=== PATIENT | male | born 1955 | race Caucasian/White ===

== ENCOUNTER 2018-11-05 20:20 | Emergency (ER) | payer OTHER ==
[~2018-11-05 20:20] MED LIST: ALPRAZolam 0.25 MG Tab ONE
[2018-11-05] MEDS ORDERED: ALPRAZolam 0.25 MG Tab ONE ×3 (21:00→22:11)
[2018-11-05] MEDS ORDERED: GI Cocktail Oral Solution 30 ML PO ONE (22:00)
[2018-11-05] MEDS ORDERED: ALPRAZolam 0.25 MG Tab PO ONE (22:00)
[2018-11-05] MEDS ORDERED: Aluminum Hydroxide/Magnesium Hydroxide/Simethicone Susp 30 ML Cup ONE (22:10)
--- NOTE | 2018-11-07 10:06 | EDM.PDOC ---
ED HPI GENERAL MEDICAL PROBLEM - General Chief Complaint: General Stated Complaint: CHEST PAIN Time Seen by Provider: 11/05/18 20:50 Source of Information: Reports: Patient History Limitations: Reports: No Limitations - History of Present Illness INITIAL COMMENTS - FREE TEXT/NARRATIVE: This is a 63yo M here via private vehicle driven by son for chest pain daily on and off for the past 3 months. Patient complains of GI upset/heartburn pain with radiation into chest-midsternal. Patient states he was seen by PCP and started on Prilosec approximately 2 weeks ago, but has had no relief of symptoms. Patient denies any SOB, dyspnea, chest pain present. Pt does appear very anxious, but otherwise remains stable with no change in condition since arrival to facility. Patient reports he was on Setraline for "quite a few years " then stopped it abruptly "late fall" and with increase in anxiety and other he has been experiencing, restarted Setraline last Sunday. Pt is not from [facility] , but here on fishing trip with son. Duration: Chronic, Constant, Waxing/Waning Location: Reports: Chest Worsens with: Reports: Movement Associated Symptoms: Reports: Chest Pain Mid-Sternal Chest Pain Score (Numeric/FACES): 3 Past Medical History Cardiovascular History: Reports: High Cholesterol, Hypertension Gastrointestinal History: Reports: GERD Musculoskeletal History: Reports: Osteoarthritis Psychiatric History: Reports: Anxiety - Past Surgical History Musculoskeletal Surgical History: Reports: Shoulder Surgery Social & Family History - Family History Family Medical History: Noncontributory - Tobacco Use Smoking Status *Q: Never Smoker Second Hand Smoke Exposure: No - Caffeine Use Caffeine Use: Reports: Coffee, Soda - Recreational Drug Use Recreational Drug Use: No ED ROS GENERAL - Review of Systems Review Of Systems: ROS reveals no pertinent complaints other than HPI. ED EXAM, GENERAL - Physical Exam Exam: See Below Exam Limited By: No Limitations General Appearance: Alert, WD/WN, No Apparent Distress, Anxious Eye Exam: Bilateral Eye: EOMI, PERRL Ears: Normal External Exam Nose: Normal Inspection Throat/Mouth: Normal Inspection Head: Atraumatic, Normocephalic Neck: Normal Inspection, Supple, Non-Tender, Full Range of Motion Respiratory/Chest: No Respiratory Distress, Lungs Clear, Normal Breath Sounds Cardiovascular: Normal Peripheral Pulses, Regular Rate, Rhythm, No Edema, Other (chest wall pain between the sternum and right ribs) Peripheral Pulses: 2+: Dorsalis Pedis (L), Dorsalis Pedis (R) GI/Abdominal: Normal Bowel Sounds, Soft, Non-Tender, No Distention, No Abnormal Bruit, No Mass Back Exam: Normal Inspection Extremities: Normal Inspection Psychiatric: Anxious Skin Exam: Warm, Dry, Intact Course - Vital Signs Last Recorded V/S: Last Vital Signs Temp 37.0 C 11/05/18 20:25 Pulse 77 11/05/18 21:30 Resp 20 11/05/18 21:30 BP 164/108 H 11/05/18 21:30 Pulse Ox 97 11/05/18 21:30 - Orders/Labs/Meds Labs: Laboratory Tests 11/05/18 11/05/18 11/05/18 Range/Units 21:00 21:00 21:00 WBC 9.5 (4.0-11.0) K/uL RBC 4.55 (4.50-6.50) M/uL Hgb 14.1 (13.0-18.0) g/dL Hct 40.1 (40.0-54.0) % MCV 88 (76-96) fL MCH 31.0 (27.0-32.0) pg MCHC 35.2 H (31.0-35.0) g/dL RDW 12.8 (11.0-16.0) % Plt Count 161 (150-400) K/uL MPV 10.5 H (6.0-10.0) fL Neut % (Auto) 77.7 H (45.0-70.0) % Lymph % (Auto) 14.7 L (20.0-40.0) % [place] % (Auto) 6.8 (3.0-10.0) % Eos % (Auto) 0.5 L (1.0-5.0) % Baso % (Auto) 0.3 (0.0-0.5) % Neut # (Auto) 7.35 (2.00-7.50) K/uL Lymph # (Auto) 1.39 L (1.50-4.00) K/uL [place] # (Auto) 0.64 (0.20-0.80) K/uL Eos # (Auto) 0.05 (0.04-0.40) K/uL Baso # (Auto) 0.03 (0.02-0.10) K/uL Sodium 144 (136-145) mmol/L Potassium 3.4 L (3.5-5.1) mmol/L Chloride 107 (98-107) mmol/L Carbon Dioxide 25.0 (21.0-32.0) mmol/L Anion Gap 15.4 H (5.0-15.0) mmol/L BUN 10 (8-26) mg/dL Creatinine 0.90 (0.70-1.30) mg/dL Est Cr Clr Drug Dosing 71.26 mL/min Estimated GFR (MDRD) > 60 (>60) MLS/MIN BUN/Creatinine Ratio 11.1 (6-25) Glucose 109 H (74-100) mg/dL Calcium Not Reportable POC WB Ioniz Calcium 4.8 (4.5-5.3) mg/dL Troponin I 0.010 (0.000-0.060) ng/mL Meds: Medications Discontinued Medications Generic Name Dose Route Start Last Admin Trade Name Jaime PRN Reason Stop Dose Admin Al Hydroxide/Mg Hydroxide Confirm 11/05/18 22:10 11/05/18 23:43 Mag-Al Plus Administered 11/05/18 22:11 Not Given Dose 30 ml .ROUTE .STK-MED ONE Al Hydroxide/Mg Hydroxide 30 ml 11/05/18 22:00 11/05/18 22:10 Gi Cocktail PO 11/05/18 22:01 30 ml ONETIME ONE Administration Alprazolam Confirm 11/05/18 22:07 11/05/18 22:06 Xanax Administered 11/05/18 22:08 Not Given Dose 1 mg .ROUTE .STK-MED ONE Alprazolam Confirm 11/05/18 22:11 11/05/18 22:06 Xanax Administered 11/05/18 22:12 Not Given Dose 0.5 mg .ROUTE .STK-MED ONE Alprazolam 0.5 mg 11/05/18 22:00 11/05/18 22:06 Xanax PO 11/05/18 22:01 0.5 mg NOW ONE Administration Alprazolam 1 mg 11/05/18 17:00 Xanax .ROUTE 11/05/18 17:01 .STK-MED ONE Departure - Departure Time of Disposition: 22:30 Disposition: Home, Self-Care 01 Condition: Good Clinical Impression: Costochondral chest pain, Chronic GERD, Anxiety about health - Discharge Information Instructions: Alprazolam tablets, Nonspecific Chest Pain, [id number] Referrals: PCP,None [Primary Care Provider] - Forms: ED Department Discharge Additional Instructions: May take provided Xanax as directed: 2 tablets by mouth at bedtime as needed for anxiety. May take 1,000mg Tylenol every 6-8 hours as needed for pain. Activity and diet as tolerated. May also begin taking Miralax daily to help with bowel regime. Follow up with primary provider when you return home for further treatment and evaluation. Call with any questions. - Problem List & Annotations (1) Abnormal blood pressure SNOMED Code(s): 57833195 Code(s): BUC7774 - Status: Suspected Priority: Low (2) Anxiety about health SNOMED Code(s): 488641607 Code(s): F41.8 - OTHER SPECIFIED ANXIETY DISORDERS Status: Acute Priority : High (3) Chronic GERD SNOMED Code(s): 400907949, 450938188 Code(s): K21.9 - GASTRO-ESOPHAGEAL REFLUX DISEASE WITHOUT ESOPHAGITIS Status: Chronic Priority: High (4) Costochondral chest pain SNOMED Code(s): 609686897, 523626427 Code(s): R07.1 - CHEST PAIN ON BREATHING Status: Acute Priority: High - Problem List Review Problem List Initiated/Reviewed/Updated: Yes - Assessment/Plan Plan: Counseled extensively on symptoms and signs to monitor and follow up. Patient will f/u with PCP for further workup at home in regards to PUD/GERD and obtaining EGD, discussed family history of heart disease and f/u stress test discussion with PCP. Patient meds will not be changed but counseled on direction by PCP for adjustment of sertraline and use. Patient agrees with plan of care and f/u in ER or rtc if symptoms return/progress or worsen. F/u as directed.
== END 2018-11-05 22:17 | disposition home or self-care (01) ==
LOC: LB.ED 20:20
DX: K21.9 Gastro-esophageal reflux disease without esophagitis (principal); F41.9 Anxiety disorder, unspecified; R07.1 Chest pain on breathing; I10 Essential (primary) hypertension
CPT/HCPCS: 36415; 80048; 82330; 84484; 85025; 93005; 99285; A9270